=== PATIENT | female | born 1995 | race Caucasian/White ===

== ENCOUNTER → 2016-08-16 | Outpatient (CLI) | payer MEDICAID ==
[~2016-08-16] MED LIST: DOCU100C37 PO; FERR-84 PO; HYDR-3812 PO; IBUP-1773 PO; PREN-51 PO
--- OUTSIDE RECORDS SUMMARY | 2016-08-16 10:03 | XMS REPORT ---
Author SUNITHA Jones [facility] eClinicalWorks Address Unknown Phone Unavailable Care Team Providers Care Freelance Court Stenographer Name Role Phone SUNITHA URIARTE Unavailable Allergies No Known Allergies Problems Problem Type Condition Code Onset Dates Condition Status Problem Throat pain 784.1 Active Problem Other diseases of nasal cavity and sinuses 478.19 Active Problem Other acute sinusitis 461.8 Active Problem Cough 786.2 Active Assessment Normal , first Z34.00 Active Medications No Known Medications Results Name Result Date Reference Range Unit Abnormality Flag Ultrasound : OB, Early <14 WEEKS Summary Purpose eClinicalWorks Submission
--- NOTE | 2016-08-16 13:10 | Diagnostic Imaging Report ---
INDICATION: assessment. FINDINGS: Obstetrical ultrasonography reveals intrauterine gestation. Fetus is in cephalic presentation with normal amniotic fluid index. Placenta is anterior without evidence of previa. cardiac activity is present with rate of 158 beats per minute. No anomalies identified. biometry indicates gestational age of 22 weeks and 6 days which indicates normal progression since the study of 07/03/2016. IMPRESSION: Unremarkable obstetrical ultrasound with estimated gestational age of 22 weeks and 6 days. Sonographic EDC is 12/14/2016. Dictated by: Dictated on workstation # [id number]
== END ==
LOC: RAD 10:00
PROVIDERS: ATTEND Family Medicine
DX: Z36 Encounter for antenatal screening of mother (principal); Z3A.21 21 weeks gestation of pregnancy
CPT/HCPCS: 76805

== ENCOUNTER 2016-12-12 19:24 | Inpatient (IN) | payer MEDICAID ==
[~2016-12-12] VITALS: Ht 172.7 cm; Wt 105.7 kg
[2016-12-12 20:00] VITALS: BP 128/81
[2016-12-12] MEDS ORDERED: ZOLPIDEM 5 MG (AMBIEN) TAB PO PRN (20:30)
[2016-12-12] MEDS ORDERED: DINOPROSTONE 10 MG (CERVIDIL) INSERT PV ONE (20:30)
[2016-12-12 21:00] VITALS: BP 84/81
[2016-12-12] MEDS: D5 LR IV SOLUTION 1,000 ML IV SCH (21:05)
[2016-12-12 21:29] LABS: BASOPHILS % (AUTO) 0 % (0-10); EOSINOPHILS # (AUTO) 0.1 10^3/uL (0.0-0.3); EOSINOPHILS % (AUTO) 1 % (0-10); LYMPHOCYTES # (AUTO) 2.2 X 10^3 (1.0-4.0); LYMPHOCYTES % (AUTO) 17 % (12-44); MEAN CORPUSCULAR HEMOGLOBIN 28 PG (25-34); MEAN CORPUSCULAR HGB CONC 32 G/DL (32-36); MEAN CORPUSCULAR VOLUME 88 FL (80-99); MEAN PLATELET VOLUME 9.8 FL (7.4-10.4); MONOCYTES # (AUTO) 1.1 X 10^3 (0.0-1.0); MONOCYTES % (AUTO) 8 % (0-12); NEUTROPHILS # (AUTO) 9.5 X 10^3 (1.8-7.8); NEUTROPHILS % (AUTO) 74 % (42-75); PLATELET COUNT 253 10^3/uL (130-400); RED BLOOD COUNT 4.12 10^6/uL (4.35-5.85); WHITE BLOOD COUNT 12.9 10^3/uL (4.3-11.0)
[2016-12-12 22:00] VITALS: BP 101/54
[2016-12-12] MEDS ORDERED: CATHETER FLUSH 10 ML SYR IV SCH (22:00)
[2016-12-12 22:30] VITALS: BP 126/80
[2016-12-13] VITALS (60 sets, daily range): BP systolic 99–146; BP diastolic 51–91
[2016-12-13] MEDS ORDERED: PREN-51 PO (03:04)
[2016-12-13] MEDS: D5 LR IV SOLUTION 1,000 ML IV SCH ×3 (03:58→17:52)
[2016-12-13] MEDS ORDERED: OXYTOCIN/NORMAL SALINE 500 ML IV SCH ×2 (07:19→21:20)
--- NOTE | 2016-12-13 07:19 | History & Physical-OB ---
OB - Chief Complaint & HPI Date Date of Admission: Date of Admission: December 12, 2016 at 19:25 Chief Complaint/History OB-Reason for Admission/Chief: Induction of Labor Hx : 1 Hx Para: 0 Expected Date of Delivery: December 13, 2016 Gestational Age in Weeks: 40 Gestational Age in Days: 0 Admission Nurse Assessment Rev: Yes History of Labs GBS negative Allergies and Home Medications Allergies Coded Allergies: kiwi (Verified Allergy, Severe, ANAPHYLAXIS, 12/12/16) strawberry (Verified Allergy, Severe, ANAPHYLAXIS, 12/12/16) Home Medications Vit #76/Iron,Carb/FA 1 Each Tablet, 1 EACH PO DAILY, (Reported) OB - History Hx of Present Care: Yes Ultrasounds: Normal mid trimester US Obstetrical Complications: None Medical Complications: None Delivery History Adverse Rxn to Tranfusion: No Patient Past Medical History No chronic medical problems Social History/Family History HIV/AIDS: No Recent Infectious Disease Expo: No Sexually Transmitted Disease: Yes Alcohol Use: Denies Use Recreational Drug Use: No Immunizations Hepatitis A: No Hepatitis B: Yes OB - Admission Exam Physical Exam Vitals: Vital Signs 12/12/16 12/13/16 12/13/16 22:30 05:06 05:45 Temp 99.1 Pulse 122 Resp 20 B/P (MAP) 136/60 Pulse Ox 96 O2 Delivery Room Air HEENT: Moist Membranes Heart: Rhythm Normal Lungs: Clear Abdomen: Gravid Reflexes: Normal Cervical Dilatation: 2cm Effacement: 50% Station: -3 Membranes: Intact Heart Rate: 140's Accelerations: Accelerations Present Decelerations: No Decelerations Short Term Variability: Present E [employer] Strategist Variability: Average (6-25) Contractions on Admission: >10 Minutes Apart Intensity: Mild Willis Scoring Tool (Modified) Dilation (cm): 1-2cm (1) Effacement (%): 31-51% (1) Descent/Station: -3 (0) Cervix Consistency: Medium(1) Cervix Position: Middle/Mid-Position (1) Willis Score: 3 Labs Laboratory Tests Test 12/12/16 21:05 Range/Units White Blood Count 12.9 H 4.3-11.0 10^3/uL Red Blood Count 4.12 L 4.35-5.85 10^6/uL Hemoglobin 11.6 11.5-16.0 G/DL Hematocrit 36 35-52 % Mean Corpuscular Volume 88 80-99 FL Mean Corpuscular Hemoglobin 28 25-34 PG Mean Corpuscular Hemoglobin Concent 32 32-36 G/DL Red Cell Distribution Width 16.0 H 10.0-14.5 % Platelet Count 253 130-400 10^3/uL Mean Platelet Volume 9.8 7.4-10.4 FL Neutrophils (%) (Auto) 74 42-75 % Lymphocytes (%) (Auto) 17 12-44 % Monocytes (%) (Auto) 8 0-12 % Eosinophils (%) (Auto) 1 0-10 % Basophils (%) (Auto) 0 0-10 % Neutrophils # (Auto) 9.5 H 1.8-7.8 X 10^3 Lymphocytes # (Auto) 2.2 1.0-4.0 X 10^3 Monocytes # (Auto) 1.1 H 0.0-1.0 X 10^3 Eosinophils # (Auto) 0.1 0.0-0.3 10^3/uL Basophils # (Auto) 0.0 0.0-0.1 10^3/uL OB - Assessment/Plan/Diagnosis Assessment Assessment: induction of labor Plan Plan: Induction (by cervidil) Other Plan desires epidural when in labor SUNITHA URIARTE MD December 13, 2016 07:19
[2016-12-13] MEDS ORDERED: SUFENTA 0.6MCG/ML BUPIVA 0.125 100 ML ONE (09:00)
[2016-12-13] MEDS ORDERED: fentaNYL INJECTION 100 MCG/2 ML AMP ONE ×2 (09:56→19:46)
[2016-12-13] MEDS ORDERED: BUPIVACAINE 0.25% 30 ML (SENSORCAINE) VIAL ONE (09:56)
[2016-12-13] MEDS: EPIDURAL (SUFENTA 0.6MCG/ML BUPIVA 0.125%) 100 ML BAG EPI SCH ×2 (10:00→17:52)
[2016-12-13] MEDS ORDERED: LACTATED RINGERS 1,000 ML IV ONE ×2 (11:22→19:15)
[2016-12-13] MEDS ORDERED: ONDANSETRON 4 MG/2 ML (SDV) Z0FRAN IV PRN (11:30)
[2016-12-13] MEDS ORDERED: CATHETER FLUSH 10 ML SYR IV PRN (11:30)
[2016-12-13] MEDS ORDERED: fentaNYL INJECTION 100 MCG/2 ML AMP INJ ONE (11:30)
[2016-12-13] MEDS ORDERED: NALOXONE 0.4 MG/ML 1 ML (NARCAN) VIAL IV PRN (11:30)
--- NOTE | 2016-12-13 16:38 | Progress Note (SOAP) ---
Subjective Subjective/Events-last exam Patient comfortable now with epidural in place. Objective Exam Vital Signs Date Time Temp Pulse Resp B/P (MAP) Pulse Ox O2 Delivery O2 Flow Rate FiO2 12/13/16 16:00 116 18 120/70 Non Rebreather 10.00 12/13/16 15:45 95 18 119/63 Non Rebreather 10.00 12/13/16 15:30 103 18 134/59 Room Air 12/13/16 15:15 96 18 99/51 Room Air 12/13/16 15:00 96 18 99/51 Non Rebreather 10.00 12/13/16 14:45 105 18 115/55 Non Rebreather 10.00 12/13/16 14:30 96 18 127/72 Non Rebreather 10.00 12/13/16 14:15 88 18 109/57 Non Rebreather 10.00 12/13/16 14:00 83 18 122/70 Room Air 12/13/16 13:45 96 18 119/75 Room Air 12/13/16 13:30 102 18 131/68 Non Rebreather 10.00 12/13/16 13:15 93 18 118/69 Room Air 12/13/16 13:00 104 18 120/76 Room Air 12/13/16 12:45 96 18 126/69 Room Air 12/13/16 12:30 96 18 123/74 Room Air 12/13/16 12:15 96 18 120/89 Room Air 12/13/16 12:00 102 18 121/64 Room Air 12/13/16 11:45 102 18 126/66 Room Air 12/13/16 11:30 18 Room Air 12/13/16 11:15 93 18 115/66 Room Air 12/13/16 11:00 116 18 124/62 96 Room Air 12/13/16 10:45 117 18 120/56 96 Non Rebreather 10.00 12/13/16 10:30 153 18 134/68 95 Non Rebreather 10.00 12/13/16 10:15 129 18 125/73 97 Non Rebreather 10.00 12/13/16 10:00 110 18 136/68 Non Rebreather 10.00 12/13/16 09:45 111 18 133/68 Non Rebreather 10.00 12/13/16 09:30 118 18 143/81 Non Rebreather 10.00 12/13/16 09:15 111 18 135/82 Non Rebreather 10.00 12/13/16 09:00 107 18 121/70 Non Rebreather 10.00 12/13/16 08:45 104 18 142/91 Non Rebreather 10.00 12/13/16 08:30 106 18 140/84 Non Rebreather 10.00 12/13/16 08:15 114 18 140/70 Non Rebreather 10.00 12/13/16 08:00 98.5 113 18 119/65 Non Rebreather 10.00 12/13/16 07:30 18 Non Rebreather 10.00 12/13/16 07:03 101 18 141/76 Room Air 12/13/16 06:45 109 20 142/86 Room Air 12/13/16 06:15 108 18 131/63 Room Air 12/13/16 05:45 122 20 136/60 Room Air 12/13/16 05:06 99.1 114 18 144/77 Room Air 12/13/16 04:17 102 20 131/58 Room Air 12/13/16 03:17 116 18 119/60 Room Air 12/13/16 03:00 Room Air 12/13/16 02:37 114 18 114/56 Room Air 12/13/16 02:00 98.6 Room Air 12/13/16 01:30 113 20 124/53 Room Air 12/13/16 00:30 117 18 127/56 Room Air 12/13/16 00:01 98.7 114 20 123/59 Room Air 12/12/16 22:30 100 18 126/80 96 Room Air 12/12/16 22:00 98.8 117 18 101/54 97 Room Air 12/12/16 21:00 125 20 84/81 97 Room Air 12/12/16 20:30 Room Air 12/12/16 20:00 98.5 123 20 128/81 Room Air I & O 12/13/16 07:00 Intake Total 1000 ml Balance 1000 ml Capillary Refill : General Appearance: No Apparent Distress Other comments Cervix at 4 cm, 70% effaced and -3 station. Results Lab Laboratory Tests 12/12/16 21:05: White Blood Count 12.9H, Red Blood Count 4.12L, Hemoglobin 11.6, Hematocrit 36, Mean Corpuscular Volume 88, Mean Corpuscular Hemoglobin 28, Mean Corpuscular Hemoglobin Concent 32, Red Cell Distribution Width 16.0H, Platelet Count 253, Mean Platelet Volume 9.8, Neutrophils (%) (Auto) 74, Lymphocytes (%) (Auto) 17, Monocytes (%) (Auto) 8, Eosinophils (%) (Auto) 1, Basophils (%) (Auto) 0, Neutrophils # (Auto) 9.5H, Lymphocytes # (Auto) 2.2, Monocytes # (Auto) 1.1H, Eosinophils # (Auto) 0.1, Basophils # (Auto) 0.0 Assessment/Plan Assessment/Plan Assess & Plan/Chief Complaint 1. IUP at 40 weeks in labor -epidural in place with pitocin augmentation -continue with labor Clinical Quality Measures DVT/VTE Risk/Contraindication: Risk Factor Score Per Nursin RFS Level Per Nursing on Admit: 1=Low/No VTE PPX SUNITHA URIARTE MD December 13, 2016 16:38
[2016-12-13] MEDS ORDERED: CITRIC ACID/SOB CIT (BICITRA) 30 ML UDC ONE (19:28)
[2016-12-13] MEDS ORDERED: FAMOTIDINE 20MG/2ML IV (PEPCID) ONE (19:29)
[2016-12-13] MEDS ORDERED: METOCLOPRAMIDE INJ 10 MG/2 ML (REGLAN) ONE (19:29)
[2016-12-13] MEDS ORDERED: ceFAZolin 1,000 MG (ANCEF) VIAL ONE (19:30)
[2016-12-13] MEDS ORDERED: NS (IVPB) 50 ML ONE (19:30)
[2016-12-13] MEDS ORDERED: LIDOCAINE PF 2% 10 ML (XYLOCAINE) AMP ONE (19:46)
[2016-12-13] MEDS ORDERED: OXYTOCIN/NORMAL SALINE 1,000 ML IV ONE (19:47)
--- NOTE | 2016-12-13 19:49 | Progress Note (SOAP) ---
Subjective Subjective/Events-last exam Patient remains very comfortable due to the epidural. Objective Exam Vital Signs Date Time Temp Pulse Resp B/P (MAP) Pulse Ox O2 Delivery O2 Flow Rate FiO2 12/13/16 19:00 103 18 128/76 Room Air 12/13/16 18:45 116 18 121/68 Room Air 12/13/16 18:30 116 18 121/68 Room Air 12/13/16 18:15 105 18 144/79 Non Rebreather 10.00 12/13/16 18:00 112 18 117/66 Non Rebreather 10.00 12/13/16 17:45 111 18 133/74 Non Rebreather 10.00 12/13/16 17:30 112 18 134/66 Non Rebreather 10.00 12/13/16 17:15 113 18 146/67 Non Rebreather 10.00 12/13/16 17:00 112 18 121/59 Non Rebreather 10.00 12/13/16 16:45 108 18 135/76 Non Rebreather 10.00 12/13/16 16:30 108 18 135/76 Non Rebreather 10.00 12/13/16 16:15 99 18 129/79 Non Rebreather 10.00 12/13/16 16:00 116 18 120/70 Non Rebreather 10.00 12/13/16 15:45 95 18 119/63 Non Rebreather 10.00 12/13/16 15:30 103 18 134/59 Room Air 12/13/16 15:15 96 18 99/51 Room Air 12/13/16 15:00 96 18 99/51 Non Rebreather 10.00 12/13/16 14:45 105 18 115/55 Non Rebreather 10.00 12/13/16 14:30 96 18 127/72 Non Rebreather 10.00 12/13/16 14:15 88 18 109/57 Non Rebreather 10.00 12/13/16 14:00 83 18 122/70 Room Air 12/13/16 13:45 96 18 119/75 Room Air 12/13/16 13:30 102 18 131/68 Non Rebreather 10.00 12/13/16 13:15 93 18 118/69 Room Air 12/13/16 13:00 104 18 120/76 Room Air 12/13/16 12:45 96 18 126/69 Room Air 12/13/16 12:30 96 18 123/74 Room Air 12/13/16 12:15 96 18 120/89 Room Air 12/13/16 12:00 102 18 121/64 Room Air 12/13/16 11:45 102 18 126/66 Room Air 12/13/16 11:30 18 Room Air 12/13/16 11:15 93 18 115/66 Room Air 12/13/16 11:00 116 18 124/62 96 Room Air 12/13/16 10:45 117 18 120/56 96 Non Rebreather 10.00 12/13/16 10:30 153 18 134/68 95 Non Rebreather 10.00 12/13/16 10:15 129 18 125/73 97 Non Rebreather 10.00 12/13/16 10:00 110 18 136/68 Non Rebreather 10.00 12/13/16 09:45 111 18 133/68 Non Rebreather 10.00 12/13/16 09:30 118 18 143/81 Non Rebreather 10.00 12/13/16 09:15 111 18 135/82 Non Rebreather 10.00 12/13/16 09:00 107 18 121/70 Non Rebreather 10.00 12/13/16 08:45 104 18 142/91 Non Rebreather 10.00 12/13/16 08:30 106 18 140/84 Non Rebreather 10.00 12/13/16 08:15 114 18 140/70 Non Rebreather 10.00 12/13/16 08:00 98.5 113 18 119/65 Non Rebreather 10.00 12/13/16 07:30 18 Non Rebreather 10.00 12/13/16 07:03 101 18 141/76 Room Air 12/13/16 06:45 109 20 142/86 Room Air 12/13/16 06:15 108 18 131/63 Room Air 12/13/16 05:45 122 20 136/60 Room Air 12/13/16 05:06 99.1 114 18 144/77 Room Air 12/13/16 04:17 102 20 131/58 Room Air 12/13/16 03:17 116 18 119/60 Room Air 12/13/16 03:00 Room Air 12/13/16 02:37 114 18 114/56 Room Air 12/13/16 02:00 98.6 Room Air 12/13/16 01:30 113 20 124/53 Room Air 12/13/16 00:30 117 18 127/56 Room Air 12/13/16 00:01 98.7 114 20 123/59 Room Air 12/12/16 22:30 100 18 126/80 96 Room Air 12/12/16 22:00 98.8 117 18 101/54 97 Room Air 12/12/16 21:00 125 20 84/81 97 Room Air 12/12/16 20:30 Room Air 12/12/16 20:00 98.5 123 20 128/81 Room Air I & O 12/13/16 07:00 Intake Total 1000 ml Balance 1000 ml Capillary Refill : General Appearance: No Apparent Distress Other comments Cervix unchanged from previous exam. Cervix 4 cm, 70 % effaced and -3 to ballotable. Results Lab Laboratory Tests 12/12/16 21:05: White Blood Count 12.9H, Red Blood Count 4.12L, Hemoglobin 11.6, Hematocrit 36, Mean Corpuscular Volume 88, Mean Corpuscular Hemoglobin 28, Mean Corpuscular Hemoglobin Concent 32, Red Cell Distribution Width 16.0H, Platelet Count 253, Mean Platelet Volume 9.8, Neutrophils (%) (Auto) 74, Lymphocytes (%) (Auto) 17, Monocytes (%) (Auto) 8, Eosinophils (%) (Auto) 1, Basophils (%) (Auto) 0, Neutrophils # (Auto) 9.5H, Lymphocytes # (Auto) 2.2, Monocytes # (Auto) 1.1H, Eosinophils # (Auto) 0.1, Basophils # (Auto) 0.0 Assessment/Plan Assessment/Plan Assess & Plan/Chief Complaint 1. IUP at 40 weeks in labor -epidural in place with pitocin now discontinued. -CPD with FTP. -Arrangments for primary LTCS with Dr Pedroza and surgery crew notified. Clinical Quality Measures DVT/VTE Risk/Contraindication: Risk Factor Score Per Nursin RFS Level Per Nursing on Admit: 1=Low/No VTE PPX SUNITHA URIRATE MD December 13, 2016 19:49
[2016-12-13] MEDS ORDERED: BUPIVACAINE 0.5% 30 ML (SENSORCAINE) VIAL ONE (19:54)
--- NOTE | 2016-12-13 20:23 | Progress Note-Pre Operative ---
Pre-Operative Progress Note H&P Reviewed The H&P was reviewed, patient examined and no changes noted. Date H&P Reviewed: December 13, 2016 Time H&P Reviewed: 08:05 Pre-Operative Diagnosis: Arrest of labor, heart rate decelerations MARIAH GALLO DO December 13, 2016 8:23 pm
[2016-12-13] MEDS ORDERED: KETOROLAC 30 MG/ML VIAL ONE (20:33)
[2016-12-13] MEDS ORDERED: CARBOPROST (HEMABATE) 250 MCG/ML AMP IM ONE (20:51)
[2016-12-13] MEDS ORDERED: METHYLERGONOVINE 0.2 MG/ML (METHERGINE) AMP ONE ×2 (20:55→21:09)
[2016-12-13] MEDS ORDERED: ONDANSETRON 4 MG/2 ML (SDV) Z0FRAN ONE (21:03)
[2016-12-13] MEDS ORDERED: PHENYLEPHRINE 100 MCG/ML 10 ML (ANESTHESIA) SYR ONE (21:03)
[2016-12-13] MEDS ORDERED: HYDROmorphone (DILAUDID) 2 MG/ML VIAL IVP PRN ×2 (21:15→21:30)
[2016-12-13] MEDS ORDERED: ONDANSETRON 4 MG/2 ML (SDV) Z0FRAN IVP PRN ×2 (21:15→21:30)
[2016-12-13] MEDS ORDERED: morphine INJ 10 MG/ML 1ML (SYR OR VIAL) IVP PRN (21:15)
[2016-12-13] MEDS ORDERED: IBUP-1773 PO (21:28)
[2016-12-13] MEDS ORDERED: HYDR-3812 PO (21:28)
[2016-12-13] MEDS ORDERED: DOCU100C37 PO (21:28)
--- NOTE | 2016-12-13 21:29 | Discharge Inst-Women's Service ---
Discharge Inst-Women's Serv Depart Medication/Instructions New, Converted or Re-Newed RX: RX on Chart Consults/Follow Up Additional Follow Up: Yes Activity Activity: Activity as Tolerated Driving Instructions: No Driving for 1 Week Nothing Inside Vagina: No Douching, No [place], No Tampons Diet Discharge Diet: No Restrictions Symptoms to Report to : Bleeding Excessive, Pain Increased, Fever Over 101 Degrees F, Vaginal Bleeding Increase, Questions/Concerns For Any Problems or Questions: Contact Your Physician Skin/Wound Care Infection Signs and Symptoms: Increased Redness, Foul Odor of Wound, Increased Drainage, Skin Itchy or Has a Rash, Increased Swelling, Temperature Above 101 F Operative Area Clean and Dry: Keep Incision Clean/Dry Stitches/Tamara/Dermabond: Dermabond, Care of Stitches Bathing Instructions: MARIAH Quick DO December 13, 2016 21:28
[2016-12-13] MEDS ORDERED: MEASLES,MUMPS,RUBELLA 1 EA INJ SC SCH (21:30)
[2016-12-13] MEDS ORDERED: TETANUS,DIPTH,PERTUSS P/F (BOOSTRIX) 0.5 ML VIAL IM SCH (21:30)
[2016-12-13] MEDS ORDERED: CATHETER FLUSH 10 ML SYR IV SCH (22:00)
[2016-12-14 01:00] VITALS: BP 115/60
[2016-12-14] MEDS: HYDROcodone/APAP 5 MG/325 MG (LORTAB) TAB PO PRN ×4 (01:49→21:14)
[2016-12-14 02:21] LABS: BASOPHILS % (AUTO) 0 % (0-10); EOSINOPHILS % (AUTO) 0 % (0-10); LYMPHOCYTES # (AUTO) 1.6 X 10^3 (1.0-4.0); LYMPHOCYTES % (AUTO) 12 % (12-44); MEAN CORPUSCULAR HEMOGLOBIN 28 PG (25-34); MEAN CORPUSCULAR HGB CONC 32 G/DL (32-36); MEAN CORPUSCULAR VOLUME 89 FL (80-99); MEAN PLATELET VOLUME 9.1 FL (7.4-10.4); MONOCYTES # (AUTO) 0.8 X 10^3 (0.0-1.0); MONOCYTES % (AUTO) 6 % (0-12); NEUTROPHILS # (AUTO) 10.8 X 10^3 (1.8-7.8); NEUTROPHILS % (AUTO) 81 % (42-75); PLATELET COUNT 193 10^3/uL (130-400); RED BLOOD COUNT 3.17 10^6/uL (4.35-5.85); RED CELL DISTRIBUTION WIDTH 16.1 % (10.0-14.5); WHITE BLOOD COUNT 13.3 10^3/uL (4.3-11.0)
[2016-12-14] MEDS: KETOROLAC 30 MG/ML VIAL IVP SCH ×3 (03:53→15:43)
[2016-12-14] MEDS ORDERED: ceFAZolin 2 GM/50 ML NS 50 ML IV ONE (05:30)
[2016-12-14 05:47] LABS: BASOPHILS % (AUTO) 0 % (0-10); EOSINOPHILS # (AUTO) 0.1 10^3/uL (0.0-0.3); EOSINOPHILS % (AUTO) 1 % (0-10); LYMPHOCYTES # (AUTO) 2.1 X 10^3 (1.0-4.0); LYMPHOCYTES % (AUTO) 17 % (12-44); MEAN CORPUSCULAR HEMOGLOBIN 28 PG (25-34); MEAN CORPUSCULAR HGB CONC 31 G/DL (32-36); MEAN CORPUSCULAR VOLUME 89 FL (80-99); MEAN PLATELET VOLUME 9.5 FL (7.4-10.4); MONOCYTES # (AUTO) 1.4 X 10^3 (0.0-1.0); MONOCYTES % (AUTO) 11 % (0-12); NEUTROPHILS # (AUTO) 9.2 X 10^3 (1.8-7.8); NEUTROPHILS % (AUTO) 72 % (42-75); PLATELET COUNT 184 10^3/uL (130-400); RED BLOOD COUNT 2.96 10^6/uL (4.35-5.85); WHITE BLOOD COUNT 12.8 10^3/uL (4.3-11.0)
[2016-12-14 06:50] VITALS: BP 115/68
[2016-12-14 08:05] VITALS: BP 121/69
--- NOTE | 2016-12-14 08:19 | Postpartum Progress Note ---
Post Op Post-operative Day #1 Subjective: Patient is without complaints. Ambulating, voiding after cespedes removed. Tolerating a regular diet without nausea or vomiting. Normal lochia. Pain is well controlled with oral pain medications. Passing flatus. Breast feeding. Objective: VS - Last 72 Hours, by Label 12/12/16 12/12/16 12/12/16 12/12/16 20:00 20:30 21:00 22:00 Temp 98.5 98.8 Pulse 123 125 117 Resp 20 20 18 B/P (MAP) 128/81 84/81 101/54 Pulse Ox 97 97 O2 Delivery Room Air Room Air Room Air Room Air 12/12/16 12/13/16 12/13/16 12/13/16 22:30 00:01 00:30 01:30 Temp 98.7 Pulse 100 114 117 113 Resp 18 20 18 20 B/P (MAP) 126/80 123/59 127/56 124/53 Pulse Ox 96 O2 Delivery Room Air Room Air Room Air Room Air 12/13/16 12/13/16 12/13/16 12/13/16 02:00 02:37 03:00 03:17 Temp 98.6 Pulse 114 116 Resp 18 18 B/P (MAP) 114/56 119/60 O2 Delivery Room Air Room Air Room Air Room Air 12/13/16 12/13/16 12/13/16 12/13/16 04:17 05:06 05:45 06:15 Temp 99.1 Pulse 102 114 122 108 Resp 20 18 20 18 B/P (MAP) 131/58 144/77 136/60 131/63 O2 Delivery Room Air Room Air Room Air Room Air 12/13/16 12/13/16 12/13/16 12/13/16 06:45 07:03 07:30 08:00 Temp 98.5 Pulse 109 101 113 Resp 20 18 18 18 B/P (MAP) 142/86 141/76 119/65 O2 Delivery Room Air Room Air Non Rebreather Non Rebreather O2 Flow Rate 10.00 10.00 12/13/16 12/13/16 12/13/16 12/13/16 08:15 08:30 08:45 09:00 Pulse 114 106 104 107 Resp 18 18 18 18 B/P (MAP) 140/70 140/84 142/91 121/70 O2 Delivery Non Rebreather Non Rebreather Non Rebreather Non Rebreather O2 Flow Rate 10.00 10.00 10.00 10.00 12/13/16 12/13/16 12/13/16 12/13/16 09:15 09:30 09:45 10:00 Pulse 111 118 111 110 Resp 18 18 18 18 B/P (MAP) 135/82 143/81 133/68 136/68 O2 Delivery Non Rebreather Non Rebreather Non Rebreather Non Rebreather O2 Flow Rate 10.00 10.00 10.00 10.00 12/13/16 12/13/16 12/13/16 12/13/16 10:15 10:30 10:45 11:00 Pulse 129 153 117 116 Resp 18 18 18 18 B/P (MAP) 125/73 134/68 120/56 124/62 Pulse Ox 97 95 96 96 O2 Delivery Non Rebreather Non Rebreather Non Rebreather Room Air O2 Flow Rate 10.00 10.00 10.00 12/13/16 12/13/16 12/13/16 12/13/16 11:15 11:30 11:45 12:00 Pulse 93 102 102 Resp 18 18 18 18 B/P (MAP) 115/66 126/66 121/64 O2 Delivery Room Air Room Air Room Air Room Air 12/13/16 12/13/16 12/13/16 12/13/16 12:15 12:30 12:45 13:00 Pulse 96 96 96 104 Resp 18 18 18 18 B/P (MAP) 120/89 123/74 126/69 120/76 O2 Delivery Room Air Room Air Room Air Room Air 12/13/16 12/13/16 12/13/16 12/13/16 13:15 13:30 13:45 14:00 Pulse 93 102 96 83 Resp 18 18 18 18 B/P (MAP) 118/69 131/68 119/75 122/70 O2 Delivery Room Air Non Rebreather Room Air Room Air O2 Flow Rate 10.00 12/13/16 12/13/16 12/13/16 12/13/16 14:15 14:30 14:45 15:00 Pulse 88 96 105 96 Resp 18 18 18 18 B/P (MAP) 109/57 127/72 115/55 99/51 O2 Delivery Non Rebreather Non Rebreather Non Rebreather Non Rebreather O2 Flow Rate 10.00 10.00 10.00 10.00 12/13/1612/13/12/13/16 12/13/16 15:15 15:30 15:45 16:00 Pulse 96 103 95 116 Resp 18 18 18 18 B/P (MAP) 99/51 134/59 119/63 120/70 O2 Delivery Room Air Room Air Non Rebreather Non Rebreather O2 Flow Rate 10.00 10.00 12/13/16 12/13/1612/13/12/13/16 16:15 16:30 16:45 17:00 Pulse 99 108 108 112 Resp 18 18 18 18 B/P (MAP) 129/79 135/76 135/76 121/59 O2 Delivery Non Rebreather Non Rebreather Non Rebreather Non Rebreather O2 Flow Rate 10.00 10.00 10.00 10.00 12/13/16 12/13/1612/13/12/13/16 17:15 17:30 17:45 18:00 Pulse 113 112 111 112 Resp 18 18 18 18 B/P (MAP) 146/67 134/66 133/74 117/66 O2 Delivery Non Rebreather Non Rebreather Non Rebreather Non Rebreather O2 Flow Rate 10.00 10.00 10.00 10.00 12/13/1612/13/12/13/16 12/13/16 18:15 18:30 18:45 19:00 Pulse 105 116 116 103 Resp 18 18 18 18 B/P (MAP) 144/79 121/68 121/68 128/76 O2 Delivery Non Rebreather Room Air Room Air Room Air O2 Flow Rate 10.00 12/13/16 12/13/16 12/13/16 12/13/16 19:15 19:45 20:00 20:25 Temp 99.0 Pulse 110 113 93 108 Resp 20 20 20 20 B/P (MAP) 133/68 134/73 132/63 128/76 O2 Delivery Room Air Room Air Room Air Room Air 12/13/16 12/14/16 12/14/16 23:34 01:00 06:50 Temp 97.8 98.8 98.8 Pulse 98 116 94 Resp 18 18 18 B/P (MAP) 115/70 115/60 115/68 Pulse Ox 96 95 95 O2 Delivery Room Air Room Air Room Air Physical Exam: General - Alert and oriented, no apparent distress Abdomen - Soft, appropriately tender to palpation, non-distended, fundus firm at umbilicus Incision - clean, dry and intact; no erythema or induration, no drainage Extremities - no edema, negative Eneida's bilaterally Laboratory Tests Test 12/14/16 02:10 12/14/16 05:19 Range/Units White Blood Count 13.3 H 12.8 H 4.3-11.0 10^3/uL Red Blood Count 3.17 L 2.96 L 4.35-5.85 10^6/uL Hemoglobin 8.9 #L 8.3 L 11.5-16.0 G/DL Hematocrit 28 L 26 L 35-52 % Mean Corpuscular Volume 89 89 80-99 FL Mean Corpuscular Hemoglobin 28 28 25-34 PG Mean Corpuscular Hemoglobin Concent 32 31 L 32-36 G/DL Red Cell Distribution Width 16.1 H 16.0 H 10.0-14.5 % Platelet Count 193 184 130-400 10^3/uL Mean Platelet Volume 9.1 9.5 7.4-10.4 FL Neutrophils (%) (Auto) 81 H 72 42-75 % Lymphocytes (%) (Auto) 12 17 12-44 % Monocytes (%) (Auto) 6 11 0-12 % Eosinophils (%) (Auto) 0 1 0-10 % Basophils (%) (Auto) 0 0 0-10 % Neutrophils # (Auto) 10.8 H 9.2 H 1.8-7.8 X 10^3 Lymphocytes # (Auto) 1.6 2.1 1.0-4.0 X 10^3 Monocytes # (Auto) 0.8 1.4 H 0.0-1.0 X 10^3 Eosinophils # (Auto) 0.0 0.1 0.0-0.3 10^3/uL Basophils # (Auto) 0.0 0.0 0.0-0.1 10^3/uL Assessment: 20 y/o post-operative day # 1, status post PLTCS for arrest of labor, NRFHTs. Recovering well, hemodynamically stable Acute blood loss anemia after 1500ml EBL - Hgb 11 --> 8.3, asymptomatic Rh+ Elevated BPs in labor, normalized since delivery Plan: Routine post-operative care. Encourage breast feeding. Encourage ambulation. VTE prophylaxis: SCDs. Ferrous sulfate supplementation TID. If symptomatic, recheck CBC and consider transfusion however doing well currently Watch BPs and si/sx pre-eclampsia however have normalized since delivery Plan for discharge POD#2-3 Vitals - Labs Vital Signs - I&O Vital Signs Date Time Temp Pulse Resp B/P (MAP) Pulse Ox O2 Delivery O2 Flow Rate FiO2 12/14/16 06:50 98.8 94 18 115/68 95 Room Air 12/14/16 01:00 98.8 116 18 115/60 95 Room Air 12/13/16 23:34 97.8 98 18 115/70 96 Room Air 12/13/16 20:25 108 20 128/76 Room Air 12/13/16 20:00 93 20 132/63 Room Air 12/13/16 19:45 99.0 113 20 134/73 Room Air 12/13/16 19:15 110 20 133/68 Room Air 12/13/16 19:00 103 18 128/76 Room Air 12/13/16 18:45 116 18 121/68 Room Air 12/13/16 18:30 116 18 121/68 Room Air 12/13/16 18:15 105 18 144/79 Non Rebreather 10.00 12/13/16 18:00 112 18 117/66 Non Rebreather 10.00 12/13/16 17:45 111 18 133/74 Non Rebreather 10.00 12/13/16 17:30 112 18 134/66 Non Rebreather 10.00 12/13/16 17:15 113 18 146/67 Non Rebreather 10.00 12/13/16 17:00 112 18 121/59 Non Rebreather 10.00 12/13/16 16:45 108 18 135/76 Non Rebreather 10.00 12/13/16 16:30 108 18 135/76 Non Rebreather 10.00 12/13/16 16:15 99 18 129/79 Non Rebreather 10.00 12/13/16 16:00 116 18 120/70 Non Rebreather 10.00 12/13/16 15:45 95 18 119/63 Non Rebreather 10.00 12/13/16 15:30 103 18 134/59 Room Air 12/13/16 15:15 96 18 99/51 Room Air 12/13/16 15:00 96 18 99/51 Non Rebreather 10.00 12/13/16 14:45 105 18 115/55 Non Rebreather 10.00 12/13/16 14:30 96 18 127/72 Non Rebreather 10.00 12/13/16 14:15 88 18 109/57 Non Rebreather 10.00 12/13/16 14:00 83 18 122/70 Room Air 12/13/16 13:45 96 18 119/75 Room Air 12/13/16 13:30 102 18 131/68 Non Rebreather 10.00 12/13/16 13:15 93 18 118/69 Room Air 12/13/16 13:00 104 18 120/76 Room Air 12/13/16 12:45 96 18 126/69 Room Air 12/13/16 12:30 96 18 123/74 Room Air 12/13/16 12:15 96 18 120/89 Room Air 12/13/16 12:00 102 18 121/64 Room Air 12/13/16 11:45 102 18 126/66 Room Air 12/13/16 11:30 18 Room Air 12/13/16 11:15 93 18 115/66 Room Air 12/13/16 11:00 116 18 124/62 96 Room Air 12/13/16 10:45 117 18 120/56 96 Non Rebreather 10.00 12/13/16 10:30 153 18 134/68 95 Non Rebreather 10.00 12/13/16 10:15 129 18 125/73 97 Non Rebreather 10.00 12/13/16 10:00 110 18 136/68 Non Rebreather 10.00 12/13/16 09:45 111 18 133/68 Non Rebreather 10.00 12/13/16 09:30 118 18 143/81 Non Rebreather 10.00 12/13/16 09:15 111 18 135/82 Non Rebreather 10.00 12/13/16 09:00 107 18 121/70 Non Rebreather 10.00 12/13/16 08:45 104 18 142/91 Non Rebreather 10.00 12/13/16 08:30 106 18 140/84 Non Rebreather 10.00 I & O 12/14/16 07:00 Intake Total 3900 ml Output Total 1975 ml Balance 1925 ml Labs Laboratory Tests 12/14/16 02:10: White Blood Count 13.3H, Red Blood Count 3.17L, Hemoglobin 8.9#L, Hematocrit 28L , Mean Corpuscular Volume 89, Mean Corpuscular Hemoglobin 28, Mean Corpuscular Hemoglobin Concent 32, Red Cell Distribution Width 16.1H, Platelet Count 193, Mean Platelet Volume 9.1, Neutrophils (%) (Auto) 81H, Lymphocytes (%) (Auto) 12 , Monocytes (%) (Auto) 6, Eosinophils (%) (Auto) 0, Basophils (%) (Auto) 0, Neutrophils # (Auto) 10.8H, Lymphocytes # (Auto) 1.6, Monocytes # (Auto) 0.8, Eosinophils # (Auto) 0.0, Basophils # (Auto) 0.0 12/14/16 05:19: White Blood Count 12.8H, Red Blood Count 2.96L, Hemoglobin 8.3L, Hematocrit 26L , Mean Corpuscular Volume 89, Mean Corpuscular Hemoglobin 28, Mean Corpuscular Hemoglobin Concent 31L, Red Cell Distribution Width 16.0H, Platelet Count 184, Mean Platelet Volume 9.5, Neutrophils (%) (Auto) 72, Lymphocytes (%) (Auto) 17, Monocytes (%) (Auto) 11, Eosinophils (%) (Auto) 1, Basophils (%) (Auto) 0, Neutrophils # (Auto) 9.2H, Lymphocytes # (Auto) 2.1, Monocytes # (Auto) 1.4H, Eosinophils # (Auto) 0.1, Basophils # (Auto) 0.0 GENIA TRACY MD December 14, 2016 08:19
[2016-12-14] MEDS: DOCUSATE SODIUM 100 MG (COLACE) CAP PO SCH (10:13)
[2016-12-14] MEDS: FERROUS SULF 325 MG (IRON) TAB PO SCH (10:13)
--- NOTE | 2016-12-14 11:48 | OPERATIVE REPORT ---
DATE OF SERVICE: PREOPERATIVE DIAGNOSES: 1. A 20-year-old at 40 weeks' gestation. 2. Failure to progress. 3. heart rate decelerations. POSTOPERATIVE DIAGNOSES: 1. A 20-year-old at 40 weeks' gestation. 2. Failure to progress. 3. heart rate decelerations. 4. Uterine atony. 5. hemorrhage. PROCEDURE: Primary low transverse section. SURGEON: Dr. Caesar Pedroza AUTO ADJUDICATION SPECIALIST: Dr. Ammon Moore. ANESTHESIA: Epidural which is bolused. ESTIMATED BLOOD LOSS: 1500 mL. FLUIDS: 2000 mL of lactated Ringer's solution. URINE OUTPUT: 300 mL, slightly pink-tinged at the end of the procedure. FINDINGS: A live female infant weighing 8 pounds 16 ounces, Apgars of 8 and 9. Grossly normal-appearing uterus, bilateral fallopian tubes and ovaries with uterine atony appreciated. SPECIMEN SENT: Placenta. INDICATIONS FOR PROCEDURE: This is a 20-year-old female who is a patient of Dr. Moore, was admitted for induction of labor for post date. She was monitored throughout the day and received an epidural. Later in the afternoon, according to Dr. Moore and nurses in attendance, who were following her, she began to have heart decelerations that appeared to be late in nature. She made little to no progression throughout the day despite ruptured membranes and augmentation of her labor with Pitocin. Due to failure to progress as well as heart rate deceleration, discussed with the patient proceeding with . Actually, I was consulted for section by Dr. Moore. The risks of the procedure were discussed in the patient in detail with her mother present. After all of her questions were answered, consent was obtained, patient was taken to the operating room after epidural was bolused. OPERATIVE REPORT IN DETAIL: Once in the operating room, anesthesia was found to be adequate and she was placed in the supine position with a leftward tilt, prepped and draped in normal sterile fashion. A timeout was performed. I then proceeded with making a Pfannenstiel skin incision with a knife and carried down to the underlying fascia using Bovie cautery. The fascial incision was extended laterally using Bovie cautery. The superior aspect of the fascial incision was then gasped with Yazmin clamps, tilted upward and dissected off underlying rectus muscles. The inferior aspect of the fascial incision was then grasped with Yazmin clamps, tilted upward and dissected off the underlying rectus muscles. The rectus muscles were dissected in the midline using Benitez scissors, which exposed the peritoneum, which I entered bluntly and extended inferiorly using Metzenbaum scissors with good visualization of the underlying bowel and bladder. I then placed the Bruce ring retractor in the peritoneal incision, which offers excellent lateral sidewall retraction. Once this was in place, I identified the lower uterine segment, which was found to be thinned out. I then made a low transverse incision to investigate the pneumoperitoneum and bluntly dissect this off of the lower uterine segment, creating a bladder flap. I then proceeded with myotomy until I am able to visualize the membranes and run into a venous sinus on the uterus. I then am able to perforate through the uterus itself and extend the uterine incision laterally and superiorly using bandage scissors. I find the infant in the vertex presentation, which under fundal pressure, the infant's head is elevated up to the incision, where it is delivered. The nares and oropharynx are delivered at that point. Anterior posterior shoulders are delivered and the is then brought out to the operative field, where the cord was doubly clamped and cut. The infant was handed off to Dr. Moore and taken care of and attended to by Dr. Moore. Cord blood is collected, 3-vessel cord with intact placenta delivered spontaneously thereafter. IV Pitocin is initiated to facilitate uterine contraction. The uterus is exteriorized and cleared of all endometrial clots and debris, where it remained boggy. I did have anesthesia give 0.2 mg of Methergine IM and proceeded with closing the uterine incision using 0 Vicryl suture in running locked fashion. A second layer of imbricating 0 Monocryl was placed. There was still bogginess noted in the uterus. At that point, I have them give 250 mcg of Carboprost IM and proceed with placing the uterus back within the pelvis and copiously irrigated the pelvis using normal saline. There is no active bleeding noted from any of the incisions; however, the uterus continues to be boggy. At this point, I decide to place 0.2 mg of Methergine into the fundus of the uterus by injection. I used a 22 mL syringe and injected into the fundus of the uterus. Care was taken not to aspirate for injection, 1 mL is injected, after which tone appears to be very well firm. I then placed the uterus back into the pelvis. Interceed was placed over the low transverse incision for postoperative adhesion prevention management. The rectus muscles were reapproximated using 3-0 Vicryl suture in interrupted fashion. The fascia was reapproximated using 0 Vicryl suture in running fashion. Subcutaneous tissues were reapproximated 3-0 plain in interrupted subcutaneous stitch and the skin was reapproximated using 4-0 Monocryl in running subcuticular. Dermabond was applied to the incision, sterile dressing is adhesed with white tape. The patient tolerated the procedure and was sent to recovery in stable condition. Lap and sponge counts correct at the end of the procedure. Needle counts were correct as well. Two grams of Ancef will be given 8 hours postoperatively for hemorrhage of 1500 mL. I am also ordering a CBC later this evening to follow the patient's hemoglobin. The patient was typed and crossed intraoperatively; however, no transfusion was ordered. Job ID: [id number] DocumentID: [id number] Dictated Date: 12/13/2016 21:34:45 Mix Maker Date: 12/14/2016 11:48:00 Dictated By: DO SUZAN RUIZ
--- NOTE | 2016-12-14 12:48 | Anesthesia-Regional Post-Op ---
Regional Patient Condition Mental Status: Alert, Oriented x3 Circulation: Same as Pre-Op Headache: Absent Sensation: Full Recovery Motor Block: Absent Post Op Complications Complications None Follow Up Care/Instructions Patient Instructions None needed. Anesthesia/Patient Condition Patient is doing well, no complaints, stable vital signs, no apparent adverse anesthesia problems. No complications reported per nursing. SHAY MCKEON CRNA December 14, 2016 12:48
[2016-12-14 15:45] VITALS: BP 118/74
[2016-12-14] MEDS: IBUPROFEN 600 MG (MOTRIN) TAB PO SCH (21:13)
[2016-12-15] VITALS: BP 112/58
[2016-12-15] MEDS: IBUPROFEN 600 MG (MOTRIN) TAB PO SCH ×3 (02:49→14:03)
[2016-12-15 05:00] VITALS: BP 121/78
[2016-12-15] MEDS: DOCUSATE SODIUM 100 MG (COLACE) CAP PO SCH (08:23)
[2016-12-15] MEDS: FERROUS SULF 325 MG (IRON) TAB PO SCH ×2 (08:23→14:03)
[2016-12-15] MEDS: HYDROcodone/APAP 5 MG/325 MG (LORTAB) TAB PO PRN ×2 (08:23→12:43)
[2016-12-15 08:24] VITALS: BP 128/80
[2016-12-15] MEDS ORDERED: FERR-84 PO (08:52)
--- NOTE | 2016-12-15 08:53 | Postpartum Progress Note ---
Post Op Post-operative Day #2 Subjective: Patient is without complaints. Ambulating, voiding after cespedes removed. Tolerating a regular diet without nausea or vomiting. Normal lochia. Pain is well controlled with oral pain medications. Passing flatus. Breast feeding and bottle feeding. Objective: Vital Sign - Last 12Hours 12/15/16 12/15/16 12/15/16 00:00 05:00 08:24 Temp 98.2 97.7 97.2 Pulse 93 72 96 Resp 18 18 18 B/P (MAP) 112/58 121/78 128/80 Pulse Ox 97 99 99 O2 Delivery Room Air Room Air Room Air Physical Exam: General - Alert and oriented, no apparent distress Abdomen - Soft, appropriately tender to palpation, non-distended, fundus firm at umbilicus Incision - clean, dry and intact; no erythema or induration, no drainage Extremities - no edema, negative Eneida's bilaterally no new labs Assessment: 20 y/o post-operative day # 2, status post PLTCS for arrest of labor, NRFHTs. Recovering well, hemodynamically stable Acute blood loss anemia after 1500ml EBL - Hgb 11 --> 8.3, asymptomatic Rh+ Elevated BPs in labor, normalized since delivery Plan: Routine post-operative care. Encourage breast feeding. Encourage ambulation. VTE prophylaxis: SCDs. Ferrous sulfate supplementation - continue on discharge. Plan for discharge today, f/u with Dr. Pedroza as instructed. Vitals - Labs Vital Signs - I&O Vital Signs Date Time Temp Pulse Resp B/P (MAP) Pulse Ox O2 Delivery O2 Flow Rate FiO2 12/15/16 08:24 97.2 96 18 128/80 99 Room Air 12/15/16 05:00 97.7 72 18 121/78 99 Room Air 12/15/16 00:00 98.2 93 18 112/58 97 Room Air 12/14/16 15:45 97.8 102 18 118/74 97 Room Air GENIA TRACY MD December 15, 2016 08:53
[2016-12-15 14:05] VITALS: BP 126/78
[2016-12-19 09:15] LABS: RUBELLA ANTIBOD 0.86 INDEX (0.00-0.89)
[2016-12-19 09:19] LABS: RUBELLA ANTIBODY INTERP Negative (NEGATIVE)
== END 2016-12-15 17:30 | disposition home or self-care (01) | DRG 765 ==
LOC: WSo 19:24 → LDRP 19:25
PROVIDERS: ADMIT Family Medicine; ATTEND Family Medicine
PROC: 3E0P05Z Introduction of Adhesion Barrier into Female Reproductive, Open Approach (ICD-10-PCS; 2016-12-13)
PROC: 10D00Z1 Extraction of Products of Conception, Low, Open Approach (ICD-10-PCS; principal; 2016-12-13 20:26)
DX: O65.4 Obstructed labor due to fetopelvic disproportion, unspecified (principal); O76 Abnormality in fetal heart rate and rhythm complicating labor and delivery; O72.1 Other immediate postpartum hemorrhage; O99.03 Anemia complicating the puerperium; D62 Acute posthemorrhagic anemia; Z3A.40 40 weeks gestation of pregnancy; Z37.0 Single live birth
CPT/HCPCS: 36415; 85025; 86762; 86850; 86900; 86901; 86920; 88307; 94664